=== PATIENT | female | born 1965 | race Caucasian/White ===

== ENCOUNTER → 2017-07-25 | Outpatient (CLI) | payer BC | LOC: CIMAGING 08:17 | PROVIDERS: ATTEND Nurse Practitioner | DX: Z12.31 Encounter for screening mammogram for malignant neoplasm of breast (principal) | CPT/HCPCS: G0202 ==

== ENCOUNTER → 2017-08-04 | Outpatient (CLI) | payer BC | LOC: CIMAGING 13:24 | PROVIDERS: ATTEND Internal Medicine Gastroenterology | DX: Z12.11 Encounter for screening for malignant neoplasm of colon (principal) | CPT/HCPCS: 74261-PO ==

== ENCOUNTER → 2017-12-20 | Outpatient (CLI) | payer BC | LOC: CIMAGING 10:29 | PROVIDERS: ATTEND Nurse Practitioner | DX: S92.492A Other fracture of left great toe, initial encounter for closed fracture (principal) | CPT/HCPCS: 73660-PO ==

== ENCOUNTER 2018-02-18 08:46 | Emergency (ER) | payer BC ==
[2018-02-18] MEDS ORDERED: ONDANSETRON 4 MG/2 ML VIAL IVP ONE (09:09)
--- NOTE | 2018-02-18 09:09 | EDPHY ---
H & P Time Seen by Provider: 02/18/18 08:50 HPI/ROS: CHIEF COMPLAINT: Vomiting and diarrhea HISTORY OF PRESENT ILLNESS: 52-year-old woman had a taco salad from [employer] last night around 9:00 p.m. After getting home from work and awakened at 2:30 a.m. With abdominal cramping mostly in the right side associated with vomiting and some diarrhea. No melena or hematemesis. No fever or chills. Symptoms moderate and associated with feeling dehydrated. She says the abdominal symptoms are similar to which she had before she had her gallbladder removed. No recent foreign travel. No injury or trauma. Worse with oral intake. REVIEW OF SYSTEMS: Eye: no change in vision ENT: no sore throat Cardiac: no chest pain or syncope Pulmonary: no cough or SOB Abdomen: HPI Musculoskeletal: A little bit of radiation to the back. Skin: no rash Neuro: no headache Constitutional: no fever : no urinary symptoms A comprehensive 10 point review of systems is otherwise negative aside from elements mentioned in the history of present illness. PAST MEDICAL HISTORY: Includes cholecystectomy, depression and anxiety, lumbar spine surgery Social history: Occasional alcohol none recent General Appearance: Alert and conversant, cooperative. Eyes: No scleral icterus. ENT, Mouth: Dry mucous membranes Respiratory: Normal respiratory effort, breath sounds equal, lungs are clear to auscultation. Cardiovascular: Regular rate and rhythm. Gastrointestinal: Mild epigastric tenderness without rebound or guarding. Neurological: Alert, face symmetric, normal motor and sensory in extremities. Skin: Warm and dry, no rashes. Musculoskeletal: No peripheral edema. Psychiatric: Not agitated. Emergency Department course/MDM: More likely viral gastroenteritis or food related. Zofran 4 mg IV and normal saline 2 L IV. Labs to include CBC chemistry and LFT and lipase. Considered but thought unlikely are UTI or pyelonephritis, intestinal perforation or bowel obstruction, retained common bile duct stone or cholangitis. 957: Hematocrit, chemistry, lipase negative. 1010: results discussed, LFT slightly elevated, feels better, no vomiting. Abdomen soft, nontender; alkaline phosphatase is normal, reasonable to discharge with outpatient LFT recheck; warned needs LFT recheck by PCP next 1-2 weeks. 1045: feeling better, stable for discharge, abdominal pain resolved, zofran ODT rx #6. Smoking Status: Never smoked Constitutional: Initial Vital Signs Temperature (C) 36.8 C 02/18/18 08:53 Heart Rate 69 02/18/18 08:53 Respiratory Rate 18 02/18/18 08:53 Blood Pressure 115/54 L 02/18/18 08:53 O2 Sat (%) 93 02/18/18 08:53 O2 Delivery Mode Room Air Allergies/Adverse Reactions: No Known Allergies Allergy (Verified 02/18/18 08:50) Home Medications: Medication Instructions Recorded FLUoxetine [Prozac 20 MG (RX)] 20 mg PO DAILY 04/24/12 busPIRone [Buspar (RX)] 15 mg PO 04/24/12 Atorvastatin Calcium 10/09/14 Omeprazole 10/09/14 Metformin HCl 02/18/18 Ondansetron Odt [Zofran Odt] 4 mg PO Q4PRN #6 tab 02/18/18 Vitamin D3 2000 units tab (OTC) 02/18/18 Medical Decision Making - Data Points Laboratory Results: Laboratory Results 02/18/18 09:10 02/18/18 02/18/18 02/18/18 09:53 09:38 09:10 WBC RBC Hgb Hct MCV MCH MCHC RDW Plt Count MPV Neut % (Auto) Lymph % (Auto) Campbell % (Auto) Eos % (Auto) Baso % (Auto) Nucleat RBC Rel Count Absolute Neuts (auto) Absolute Lymphs (auto) Absolute Monos (auto) Absolute Eos (auto) Absolute Basos (auto) Absolute Nucleated RBC Immature Gran % Seg Neutrophils % Band Neutrophils % Lymphocytes % Monocytes % Eosinophils % Basophils % Metamyelocytes % Myelocytes % Promyelocytes % Blast Cells % Immature Gran # Absolute Seg Neuts Absolute Band Neuts Absolute Lymphocytes Absolute Monocytes Absolute Eosinophils Absolute Basophils Absolute Metamyelocyte Absolute Myelocytes Absolute Promyelocytes Absolute Plasma Cells Absolute Blast Cells Plasma Cells % Platelet Estimate POC Sodium 142 mEq/L mEq/L (135-145) POC Potassium 3.8 mEq/L mEq/L (3.3-5.0) POC Chloride 106.0 mEq/L mEq/L (97-110) POC Total CO2 23 mEq/L mEq/L (22-31) POC BUN 18 mg/dL mg/dL (7-23) POC Creatinine 0.9 mg/dL mg/dL (0.6-1.0) POC Glucose 112 mg/dL H mg/dL (70-100) POC Calcium 9.2 mg/dL mg/dL (8.5-10.4) POC Total Bilirubin 1.0 mg/dL mg/dL (0.1-1.4) POC GGT 148 IU/L H IU/L (5-65) POC AST 152 IU/L H IU/L (14-46) POC ALT 116 IU/L H IU/L (9-52) POC Alk Phosphatase 94 IU/L IU/L (38-126) POC Total Protein 7.1 g/dL g/dL (6.3-8.2) POC Albumin 4.0 g/dL g/dL (3.5-5.0) POC Amylase 32 IU/L IU/L (30-110) Lipase 99 IU/L IU/L (23-300) 02/18/18 09:10 WBC 10.92 10^3/uL H 10^3/uL (3.80-9.50) RBC 5.39 10^6/uL H 10^6/uL (4.18-5.33) Hgb 14.1 g/dL g/dL (12.6-16.3) Hct 43.7 % % (38.0-47.0) MCV 81.1 fL L fL (81.5-99.8) MCH 26.2 pg L pg (27.9-34.1) MCHC 32.3 g/dL L g/dL (32.4-36.7) RDW 17.3 % H % (11.5-15.2) Plt Count 312 10^3/uL 10^3/uL (150-400) MPV 10.1 fL fL (8.7-11.7) Neut % (Auto) Not Reported Lymph % (Auto) Not Reported Campbell % (Auto) Not Reported Eos % (Auto) Not Reported Baso % (Auto) Not Reported Nucleat RBC Rel Count Not Reported Absolute Neuts (auto) Not Reported Absolute Lymphs (auto) Not Reported Absolute Monos (auto) Not Reported Absolute Eos (auto) Not Reported Absolute Basos (auto) Not Reported Absolute Nucleated RBC Not Reported Immature Gran % Not Reported Seg Neutrophils % 88.0 % % Band Neutrophils % 0 % % Lymphocytes % 5.0 % % Monocytes % 4.0 % % Eosinophils % 3.0 % % Basophils % 0 % % Metamyelocytes % 0 % % Myelocytes % 0 % % Promyelocytes % 0 % % Blast Cells % 0 % % Immature Gran # Not Reported Absolute Seg Neuts 9.61 10^/uL H 10^/uL (1.70-6.50) Absolute Band Neuts 0.00 10^3/uL 10^3/uL (0.00-0.70) Absolute Lymphocytes 0.55 10^3/uL L 10^3/uL (1.00-3.00) Absolute Monocytes 0.44 10^3/uL 10^3/uL (0.30-0.80) Absolute Eosinophils 0.33 10^3/uL 10^3/uL (0.03-0.40) Absolute Basophils 0.00 10^3/uL L 10^3/uL (0.02-0.10) Absolute Metamyelocyte 0.00 10^3/mL 10^3/mL (0.00-0.00) Absolute Myelocytes 0.00 10^3/mL 10^3/mL (0.00-0.00) Absolute Promyelocytes 0.00 10^3/uL 10^3/uL (0.00-0.00) Absolute Plasma Cells 0.00 10^3/uL 10^3/uL (0.00-0.00) Absolute Blast Cells 0.00 10^3/uL 10^3/uL (0.00-0.00) Plasma Cells % 0 % % Platelet Estimate Pending POC Sodium POC Potassium POC Chloride POC Total CO2 POC BUN POC Creatinine POC Glucose POC Calcium POC Total Bilirubin POC GGT POC AST POC ALT POC Alk Phosphatase POC Total Protein POC Albumin POC Amylase Lipase Medications Given: Discontinued Medications Sodium Chloride (Ns) 1,000 mls @ 0 mls/hr IV EDNOW ONE; Wide Open PRN Reason: Protocol Stop: 02/18/18 09:10 Last Admin: 02/18/18 09:58 Dose: 1,000 mls Sodium Chloride (Ns) 1,000 mls @ 0 mls/hr IV EDNOW ONE; Wide Open PRN Reason: Protocol Stop: 02/18/18 09:11 Last Admin: 02/18/18 09:50 Dose: 1,000 mls Ondansetron HCl (Zofran) 4 mg IVP EDNOW ONE Stop: 02/18/18 09:10 Last Admin: 02/18/18 09:12 Dose: 4 mg Point of Care Test Results: Chemistry 02/18/18 02/18/18 09:53 09:38 POC Sodium 142 mEq/L mEq/L (135-145) POC Potassium 3.8 mEq/L mEq/L (3.3-5.0) POC Chloride 106.0 mEq/L mEq/L (97-110) POC Total CO2 23 mEq/L mEq/L (22-31) POC BUN 18 mg/dL mg/dL (7-23) POC Creatinine 0.9 mg/dL mg/dL (0.6-1.0) POC Glucose 112 mg/dL H mg/dL (70-100) POC Calcium 9.2 mg/dL mg/dL (8.5-10.4) POC Total Bilirubin 1.0 mg/dL mg/dL (0.1-1.4) POC GGT 148 IU/L H IU/L (5-65) POC AST 152 IU/L H IU/L (14-46) POC ALT 116 IU/L H IU/L (9-52) POC Alk Phosphatase 94 IU/L IU/L (38-126) POC Total Protein 7.1 g/dL g/dL (6.3-8.2) POC Albumin 4.0 g/dL g/dL (3.5-5.0) POC Amylase 32 IU/L IU/L (30-110) Departure - Departure Disposition: Home, Routine, Self-Care Clinical Impression: Nausea vomiting and diarrhea Condition: Good Instructions: Dehydration (ED), Acute Nausea and Vomiting (ED) Referrals: Dionne Blevins, [employer] [Primary Care Provider] - As per Instructions (please have your liver function tests rechecked in 1-2 weeks by your PCP. ) Prescriptions: Ondansetron Odt [Zofran Odt] 4 mg PO Q4PRN #6 tab
[2018-02-18] MEDS: NS 1,000 ML IV ONE ×2 (09:10→09:58)
[2018-02-18] MEDS ORDERED: NS 1,000 ML IV ONE (09:10)
[2018-02-18 09:46] LABS: PLATELET COUNT 312 10^3/uL (150-400)
[2018-02-18 10:42] VITALS: BP 117/65
== END 2018-02-18 10:50 | disposition home or self-care (01) ==
LOC: CED 08:46
DX: R11.2 Nausea with vomiting, unspecified (principal); R19.7 Diarrhea, unspecified; E86.9 Volume depletion, unspecified; Z90.49 Acquired absence of other specified parts of digestive tract
CPT/HCPCS: 80048-PO; 80076-PO; 82150-PO; 96374; J2405

== ENCOUNTER → 2018-07-26 | Outpatient (CLI) | payer BC | LOC: CIMAGING 08:05 | PROVIDERS: ATTEND Nurse Practitioner | DX: Z12.31 Encounter for screening mammogram for malignant neoplasm of breast (principal) ==